=== PATIENT | female | born 1995 | race Caucasian/White ===

== ENCOUNTER 2021-03-03 23:13 | Emergency (ER) | payer MEDICARE, SELFPAY ==
[2021-03-03 23:18] VITALS: BP 177/105; PULSE 100; RESP 20; TEMP 36.1; O2SAT 98
--- NOTE | 2021-03-03 23:35 | ED.GENADULT ---
HPI - General Adult General Chief complaint: Psychiatric Symptoms <Julius Vallejo MD - Last Filed: 03/04/21 01:42> Stated complaint: paranoia <Julius Vallejo MD - Last Filed: 03/04/21 01:42> Time Seen by Provider: 03/03/21 23:26 <Julius Vallejo MD - Last Filed: 03/04/21 01:42> History of Present Illness HPI narrative: Patient is a 25-year-old female presents the emergency department with chief complaint of think people are trying to poison me patient denies suicidal or homicidal ideation reports that she wants to be tested so that she can give the information to the feds. <Julius Vallejo MD - Last Filed: 03/04/21 01:42> Review of Systems Review of Systems: A 10 system review of systems was completed on the patient and is negative except for what is stated in the HPI. Nursing and ancillary documentation was reviewed. <Julius Vallejo MD - Last Filed: 03/04/21 01:42> PMFSH Social History Social History: Social History Substance use type: unknown <Julius Vallejo MD - Last Filed: 03/04/21 01:42> Exam Narrative: GENERAL: Well-appearing, well-nourished, and in no acute distress. HEAD: Normocephalic, atraumatic. EYES: PERRLA and EOMI. ENT: Nares clear, no rhinorrhea or epistaxis. Mucous membranes moist. NECK: Supple. CHEST: Clear to auscultation. No respiratory distress. HEART: Regular rate and rhythm. No murmur heard. Normal peripheral pulses. ABDOMEN: Soft, nontender, nondistended, normal active bowel sounds. EXTREMITIES: Normal range of motion. No edema. SKIN: Warm, dry, no rash. NEURO: No focal deficits. Alert and oriented x3. PSYCH: Abnormal affect, denies suicidal or homicidal ideation. <Julius Vallejo MD - Last Filed: 03/04/21 01:42> Course Course Emergency Course: Currently the patient is not suicidal or homicidal the patient is stating that she does not want a mental health evaluation and does not want to be hospitalized at this time. The patient became combative threatening staff and threatening to kill people the patient was given Haldol and Ativan and continued to be combative and threatening others the patient was placed in four-point restraints and has been given additional doses of Haldol and Ativan as well as Zyprexa IM <Julius Vallejo MD - Last Filed: 03/04/21 01:42> Reevaluation(s) Reevaluation #1: Patient is clinically sober. She is awake alert and oriented x3. She is quite unpleasant however she answers questions appropriately and is acting appropriately. She is nonviolent and is very directable. She is spoken with the crisis behavior clinician who has no reason to hospitalize the patient. Patient would just like to go back to home and [place] where she had left her stuff. Denies SI/HI/AH/VH. <Derek Pickard MD - Last Filed: 03/04/21 14:08> Date: 03/04/21 <Derek Pickard MD - Last Filed: 03/04/21 14:08> Time: 14:04 <Derek Pickard MD - Last Filed: 03/04/21 14:08> Vital Signs Vital signs: Vital Signs Temperature 97.0 F L 03/03/21 23:18 Pulse Rate 100 03/03/21 23:18 Respiratory Rate 20 03/03/21 23:18 Blood Pressure 177/105 H 03/03/21 23:18 Pulse Oximetry 98 03/03/21 23:18 Temperature 97.0 F L 03/03/21 23:18 Pulse Rate 100 03/03/21 23:18 Respiratory Rate 20 03/03/21 23:18 Blood Pressure 177/105 H 03/03/21 23:18 Pulse Oximetry 98 03/03/21 23:18 <Julius Vallejo MD - Last Filed: 03/04/21 01:42> Vital Signs Temperature 97.0 F L 03/03/21 23:18 Pulse Rate 100 03/03/21 23:18 Respiratory Rate 20 03/03/21 23:18 Blood Pressure 177/105 H 03/03/21 23:18 Pulse Oximetry 98 03/03/21 23:18 Temperature 97.0 F L 03/03/21 23:18 Pulse Rate 100 03/03/21 23:18 Respiratory Rate 20 03/03/21 23:18 Blood Pressure 177/105 H
--- NOTE | 2021-03-03 23:45 | PC.NURSE ---
Pt educated by ED MD and this RN that if she would like to have bloodwork done and urine testing, she would need to cooperate with staff and stop yelling/threatening to leave. pt then ran through nurses station in ED throwing objects, slamming Tracker board TV, threw box of gloves at this RN, and cursing loudly. Security present and Police department notified of pt destroying property and refusing to leave.
--- NOTE | 2021-03-03 23:48 | PC.NURSE ---
Pt running around the department throwing objects off the desk with security following her around. Per EDP pt is able to leave as she is not a risk to herself or others. Pt sitting in front of the ED doors screaming at staff and refusing to leave. PD contacted for assistance.
--- NOTE | 2021-03-04 | ECG_ITS ---
Measurements Intervals [place] Rate: 77 P: 2 AL: 145 QRS: 36 QRSD: 93 T: 0 QT: 403 QTc: 457 Interpretive Statements SINUS RHYTHM INCOMPLETE RIGHT BUNDLE BRANCH BLOCK NONSPECIFIC T-WAVE ABNORMALITY- DIFFUSE LEADS BORDERLINE ECG Electronically Signed On 03-04-2021 5:27:25 CDT by Asif Colon D.O.
--- NOTE | 2021-03-04 00:23 | PC.NURSE ---
Pt remains refusing to allow any treatment and continues to scream, cry, and yell at staff. PD present. Per ED MD, pt to be moved from ED 3 to ED 15 for safety. Per PD officers at bedside, pt to be made involuntary.
--- NOTE | 2021-03-04 00:27 | PC.NURSE ---
Pt to ED 15, security at bedside. handoff to JAZMINE Townsend.
[2021-03-04] MEDS: LORazepam INJ (*CRX) 2 MG/ML VIAL IM ×2 (00:37→00:55)
[2021-03-04] MEDS: HALOPERIDOL LACTATE 5 MG/ML VIAL IM ×2 (00:37→00:55)
[2021-03-04] MEDS: diphenhydrAMINE HCl INJ 50 MG/ML VIAL IV PUSH (00:37)
[2021-03-04] MEDS: OLANZapine 10 MG INJ VIAL 5 MG IM (01:05)
[2021-03-04] MEDS: WATER, STERILE FOR INJECTION 10 ML VIAL XX (01:05)
--- NOTE | 2021-03-04 01:31 | PC.NURSE ---
at 0045 pt was put in hard restraints due to pt running around the ED throwing and yelling loudly. PT was hitting her head against the door frame in room 15. at 0037 medication was given to help calm the pt down, pt allowed Flora RN to give the medication. immediately after the medication was given pt began screaming and punching the air at the staff. PT continues to scream consistently since 003. Pt continues to try punching, biting, kicking and threatening any staff in the area. PT was held down by several people and put in hard restraints. PT then medicated again due to pt kicking and screaming and moving the bed around trying to hurt herself. PT then was medicated again after pt was consistently screaming and thrashing about in her bed with the restraints on. at 0135 - pt has calmed minimally at times. Will cont to monitor.
[2021-03-04 03:00] LABS: Basophils Percent Auto 0.2 % (0.2-1.2); Eosinophils Absolute Auto 0.1 K/mm3 (0-0.3); Eosinophils Percent Auto 1.5 % (0-4.4); Hematocrit 38.9 % (37.0-47.0); Immature Granulocyte Absolute 0.03 K/mm3 (0.00-0.031); Immature Granulocyte Percent A 0.3 % (0-0.5); Lymphocytes Absolute Auto 2.46 K/mm3 (0.9-3.2); Lymphocytes Percent Auto 25.9 % (18.3-44.2); Mean Corpuscular HGB Conc 33.4 g/dl (32-36); Mean Corpuscular Hemoglobin 29.5 pg (26-34); Mean Corpuscular Volume 88.4 fl (80-100); Mean Platelet Volume 10.2 fl (7.4-10.4); Monocytes Absolute Auto 0.8 K/mm3 (0.1-0.6); Monocytes Percent Auto 8.9 % (2.6-8.5); Neutrophils Percent Auto 63.2 % (45.5-73.1); Platelet Count Result 347 k/mm3 (150-375); Red Cell Distribution Width 13.5 % (11.5-14.5); White Blood Count 9.5 K/mm3 (4.5-10.0)
[2021-03-04 03:09] LABS: Acetaminophen < 10 ug/mL (10-30); Ethanol < 10 mg/dL (<10); Salicylate < 1.0 mg/dL (2-20)
[2021-03-04 03:10] LABS: Alanine Aminotransferase 17 U/L (4-35); Albumin Level 4.2 g/dL (3.5-5.1); Alkaline Phosphatase 107 U/L (38-126); Anion Gap 11 mmol/L (8-16); Aspartate Amino Transferase 27 U/L (14-36); Bilirubin,Total 1.2 mg/dL (0.2-1.3); Blood Urea Nitrogen 8 mg/dL (7-17); Calcium 9.3 mg/dL (8.4-10.2); Carbon Dioxide 22 mmol/L (22-30); Chloride 109 mmol/L (98-107); Estimated CRCL calculation 144 ml/min; Estimated Glomerular Filt Rate > 60; Glucose 100 mg/dL (65-110); Sodium 142 mmol/L (137-145)
[2021-03-04 03:24] LABS: Add Urine Microscopic? YES; Appearance Urine Clear (Clear); Bacteria Urine Trace /hpf; Bilirubin Urine Negative (Negative); Blood Urine Negative (Negative); Color Urine Amber (Yellow); Glucose Urine UA Negative (Negative); Ketones Urine Trace mg/dL (Negative); Leukocyte Esterase Ur Negative LEU/UL (Negative); Mucus Urine Heavy /lpf; Nitrate Urine Negative (Negative); Protein Urine 2+ mg/dL (Negative); Squamous Epithelial Cell Urine Rare /hpf (Few); WBC Urine 0-3 /hpf
[2021-03-04 03:29] LABS: Barbiturate Screen Urine Negative (Negative); Benzodiazepines Screen Urine Negative (Negative)
[2021-03-04 03:34] LABS: Cannabinoid Screen Urine Positive (Negative); Cocaine Screen Urine Negative (Negative); Methadone Screen Urine Negative (Negative); Opiate Screen Urine Negative (Negative); Phencyclidine Screen Urine Negative (Negative)
[2021-03-04 03:55] LABS: Amphetamine Screen Urine Positive (Negative)
--- NOTE | 2021-03-04 07:15 | PC.NURSE ---
Pt is asleep. Room is safe and sitter is at door
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
[2021-03-04] MEDS: POTASSIUM CHLORIDE 20 MEQ TABLET 40 MEQ (12:58)
== END 2021-03-04 15:05 | disposition home or self-care (01) ==
PROVIDERS: Emergency Provider Emergency Medicine
DX: F22 Delusional disorders (principal); R45.1 Restlessness and agitation; F15.10 Other stimulant abuse, uncomplicated
CPT/HCPCS: 36415; 51701; 80053; 80307; 81001; 84443; 85025; 93005; 96372; 96374; 99284; A9270; J1200; J1630; J2060

== ENCOUNTER 2021-12-18 11:49 | Emergency (ER) | payer SELFPAY ==
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
--- NOTE | ~2021-12-18 | XR_ITS ---
EXAMINATION: XR chest 1V portable INDICATION: Shortness of breath TECHNIQUE: Portable AP chest at 1321 hours COMPARISON: None available FINDINGS: The lungs are free of acute opacities. No pleural effusion or pneumothorax. The cardiomedia stinal silhouette is normal. The visualized bones and soft tissues are unremarkable. IMPRESSION: 1. No acute cardiopulmonary abnormality. Reviewed, dictated and finalized at location A.
--- NOTE | 2021-12-18 12:07 | ED.PSYCH ---
HPI - Psych General Chief Complaint: Psychiatric Symptoms <Luis Alberto Deleon MD - Last Filed: 12/18/21 20:48> Stated Complaint: AMBULANCE <Luis Alberto Deleon MD - Last Filed: 12/18/21 20:48> Time Seen by Provider: 12/18/21 12:06 <Luis Alberto Deleon MD - Last Filed: 12/18/21 20:48> Source: EMS <Luis Alberto Deleon MD - Last Filed: 12/18/21 20:48> Mode of arrival: EMS <Luis Alberto Deleon MD - Last Filed: 12/18/21 20:48> Limitations: altered mental status and intoxication <Luis Alberto Deleon MD - Last Filed: 12/18/21 20:48> History of Present Illness HPI Narrative: she called EMS for help but will not tell us any information except her last night <Luis Alberto Deleon MD - Last Filed: 12/18/21 20:48> MD complaint: feels depressed and altered mental status <Luis Alberto Deleon MD - Last Filed: 12/18/21 20:48> Onset (ago): unknown <Luis Alberto Deleon MD - Last Filed: 12/18/21 20:48> Duration: getting worse <Luis Alberto Deleon MD - Last Filed: 12/18/21 20:48> Relieving factors: none <Luis Alberto Deleon MD - Last Filed: 12/18/21 20:48> Exacerbating factors: none <Luis Alberto Deleon MD - Last Filed: 12/18/21 20:48> Context: recent drug abuse and not taking psychiatric medications <Luis Alberto Deleon MD - Last Filed: 12/18/21 20:48> Associated psychiatric symptoms: other (we do not know she will not communicate with us) <Luis Alberto Deleon MD - Last Filed: 12/18/21 20:48> Treatments prior to arrival: none <Luis Alberto Deleon MD - Last Filed: 12/18/21 20:48> Details of plan: none <Luis Alberto Deleon MD - Last Filed: 12/18/21 20:48> Related Data Home Medications: Home Medications Medication Instructions Recorded Confirmed Unable to Obtain Home Medications 12/18/21 12/18/21 <Luis Alberto Deleon MD - Last Filed: 12/18/21 20:48> Allergies/Adverse Reactions: Allergies Allergy/AdvReac Type Severity Reaction Status Date / Time melatonin Allergy Unknown Verified 12/19/21 15:11 Sulfa (Sulfonamide Allergy Unknown Verified 12/18/21 22:27 Antibiotics) <Luis Alberto Deleon MD - Last Filed: 12/18/21 20:48> Review of Systems Review of Systems: All systems reviewed & are unremarkable except as noted in HPI and below <Luis Alberto Deleon MD - Last Filed: 12/18/21 20:48> [facility] Social History Social History: Social History Substance use type: marijuana and heroin <Luis Alberto Deleon MD - Last Filed: 12/18/21 20:48> Comments we attempted to call a friend but she states she has no family <Luis Alberto Deleon MD - Last Filed: 12/18/21 20:48> Exam Const: General: confusion and diaphoretic <Luis Alberto Deleon MD - Last Filed: 12/18/21 20:48> Nutritional Appearance: obese <Luis Alberto Deleon MD - Last Filed: 12/18/21 20:48> Limitations: altered mental status and behavioral limitations <Luis Alberto Deleon MD - Last Filed: 12/18/21 20:48> HENMT: Head: normal to inspection <Luis Alberto Deleon MD - Last Filed: 12/18/21 20:48> Eyes: Conjunctivae: conjunctivae normal <Luis Alberto Deleon MD - Last Filed: 12/18/21 20:48> Pupils: Equal, round and reactive pupils present <Luis Alberto Deleon MD - Last Filed: 12/18/21 20:48> EOM: EOMs intact bilaterally <Luis Alberto Deleon MD - Last Filed: 12/18/21 20:48> Neck: Neck: normal visual inspection <Luis Alberto Deleon MD - Last Filed: 12/18/21 20:48> Chest: Chest palpation & inspection: normal inspection of the chest <Luis Alberto Deleon MD - Last Filed: 12/18/21 20:48> Resp: Effort & Inspection: normal respiratory effort <Luis Alberto Deleon MD - Last Filed: 12/18/21 20:48> Neuro: General: CN's II-XI intact bilaterally <Luis Alberto Deleon MD - Last Filed: 12/18/21 20:48> Cranial nerves: Yes Nystagmus not present <Luis Alberto Deleon MD - Last Filed: 12/18/21 20:48> Gait exam (Neuro): Normal gait present <Luis Alberto Deleon MD - Last Filed: 12/18/21 20:48> Extrem: General: normal to inspection <Luis Alberto Deleon MD - Last Filed: 12/18/21 20:48> Psych: Other: sever
[2021-12-18 12:17] VITALS: BP 146/101; PULSE 130; RESP 20; TEMP 36.7; O2SAT 98
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
--- NOTE | 2021-12-18 12:25 | PC.NURSE ---
1228 SPOKE WITH BRYANT THE PTS FRIEND [phone] FRIEND STATED SHE HAS A PERSONALITY DISORDER AND SHE DOES DO DRUGS SHE DOES NOT KNOW OF ANY OTHER FAMILY
--- NOTE | 2021-12-18 12:47 | PC.NURSE ---
4411 PT MOVED TO ROOM 5 PT SCREAMING AND YELLING AT STAFF POLICE REMAIN ON SITE
--- NOTE | 2021-12-18 12:48 | PC.NURSE ---
3399 DOOR CLOSED BECAUSE SHE IS SCREAMING OUT INTO THE NICOLAS
[2021-12-18 13:09] LABS: Hematocrit 45.3 % (35.0-49.0); Hemoglobin 15.5 g/dL (12.0-15.0); Immature Platelet Fraction Pct 2.7 % (1.0-7.0); Mean Corpuscular HGB Conc 34.2 g/dL (32.0-36.0); Mean Corpuscular Hemoglobin 29.9 pg (27.0-31.0); Mean Corpuscular Volume 87.5 fL (78.0-102.0); Platelet Count Result 494 K/mm3 (150-420); Red Blood Count 5.18 M/mm3 (4.20-5.40); Red Cell Distribution Width 14.3 % (11.6-14.4)
[2021-12-18 13:11] LABS: White Blood Count 22.4 K/mm3 (4.8-10.8)
--- NOTE | 2021-12-18 13:11 | PC.NURSE ---
1412 STRETCHER REMOVED FROM ROOM PT WAS STANDING ON BED PUTTING HAND OVER CAMERA
[2021-12-18 13:14] LABS: SPREG INTERNAL CONTROL Positive; Serum Qual hCG Negative
[2021-12-18 13:20] LABS: Band Neutrophils Percent 1 % (0-6); Basophils Absolute Manual 0.44 K/mm3 (0-0.1); Basophils Percent Manual 2 % (0-1); Eosinophils Absolute Manual 0.22 K/mm3 (0.02-0.5); Eosinophils Percent Manual 1 % (1-6); Lymphocytes Absolute Manual 3.13 K/mm3 (1.1-4.5); Lymphocytes Percent Manual 14 % (18-44); Monocytes Absolute Manual 1.34 K/mm3 (0.1-0.90); Monocytes Percent Manual 6 % (3-9); Neutrophils Absolute Manual 17.24 K/mm3 (1.7-7.2); Neutrophils Percent Manual 76 % (46-73); Platelet Estimate Increased (Adequate); Total Cells Counted 100
--- NOTE | 2021-12-18 13:22 | PC.NURSE ---
1322 MATRESS GIVEN FOR HER TO LAY DOWN ON
[2021-12-18 13:24] LABS: Alanine Aminotransferase 27 U/L (14-59); Albumin Level 4.3 g/dL (3.4-5.0); Alkaline Phosphatase 103 U/L (46-116); Anion Gap 13 mmol/L (8-16); Aspartate Amino Transferase 45 U/L (15-37); Bilirubin,Total 3.3 mg/dL (0.00-1.00); Blood Urea Nitrogen 11 mg/dL (7-18); Calcium 9.5 mg/dL (8.5-10.1); Carbon Dioxide 24 mmol/L (21-32); Chloride 104 mmol/L (98-108); Estimated Glomerular Filt Rate > 60; Glucose 106 mg/dL (70-99); Osmolality Calculated 291 mOsm/kg (285-295); Potassium 3.4 mmol/L (3.5-5.1); Sodium 141 mmol/L (136-145); Total Protein 8.6 g/dL (6.4-8.2)
[2021-12-18 13:31] LABS: Amphetamine Screen Urine Positive (Negative); Barbiturate Screen Urine Negative (Negative); Benzodiazepines Screen Urine Negative (Negative); Cannabinoid Screen Urine Positive (Negative); Cocaine Screen Urine Negative (Negative); Methadone Screen Urine Negative (Negative); Opiate Screen Urine Negative (Negative); Phencyclidine Screen Urine Negative (Negative)
[2021-12-18] MEDS: WATER, STERILE FOR INJECTION 10 ML VIAL XX (13:33)
[2021-12-18] MEDS: OLANZapine 10 MG INJ VIAL IM (13:33)
--- NOTE | 2021-12-18 13:44 | PC.NURSE ---
1340 urine collected again and taken to lab pt refusing to go back to room pt escorted back to room by senior branch manager [id number] pt putting pillow over camera pts arm got tired quickly
[2021-12-18 13:51] LABS: Acetaminophen < 2 ug/mL (10-30); Ethanol < 3 mg/dL (0-6); Phenytoin Dilantin < 1 ug/mL (10-20); Salicylate 1.7 mg/dL (2.8-20.0); Thyroid Stimulating Hormone 0.47 uIU/mL (0.36-3.74)
[2021-12-18 14:05] LABS: Appearance Urine Clear (Clear); Bilirubin Urine 2+ (Negative); Blood Urine 3+ (Negative); Glucose Urine UA Negative (Negative); Ketones Urine Trace (Negative); Leukocyte Esterase Ur Negative LEU/UL (Negative); Nitrate Urine Positive (Negative); Protein Urine 2+ (Negative); Specific Grav Ur >= 1.030 (1.010-1.020); pH Urine 5.5 (5.0-8.0)
[2021-12-18 14:10] LABS: Add Urine Microscopic? YES; Color Urine Dark Orange (Yellow); WBC Urine 0-3 /hpf (0-3)
[2021-12-18 14:11] LABS: Bacteria Urine 1+ /hpf; Mucus Urine Heavy /lpf; Squamous Epithelial Cell Urine Few /hpf (Few)
[2021-12-18 14:27] LABS: Troponin I 19.2 ng/L (0.00-60.4)
--- NOTE | 2021-12-18 17:00 | PC.NURSE ---
1530 PT IS NOW RESTING QUIETLY AWAITING [address]
--- NOTE | 2021-12-18 17:00 | PC.NURSE ---
[address] [facility] HAS ARRIVED
--- NOTE | 2021-12-18 17:01 | PC.NURSE ---
1649 HUYEN FROM [facility] STATED PT IS TO DROWSY TO ASSESS SHE CAN NOT STAY AWAKE TO ANSWER QUESTIONS
--- NOTE | 2021-12-18 19:14 | PC.NURSE ---
[address] [facility] SAID SHE WOULD CHECK BACK IN A FEW HOURS AND SEE IF PT IS AWAKE 1814 PT IS STILL RESTING QUIETLY WITH EYES CLOSED 1914 PT CONTINUES TO REST QUIETLY WITH EYES CLOSED
--- NOTE | 2021-12-18 20:25 | PC.NURSE ---
pt resting at this time. per Md Deleon, hold IV insertion until [place] vivian completes evaluation.
--- NOTE | 2021-12-18 21:27 | PC.NURSE ---
this staff member spoke with patient. pt asked, do you want to harm yourself or commit suicide? pt stated, I am thinking about it. you just woke me up. I don't know. pt would not provide this staff member a direct answer when asked if she is suicidal. pt became angry and turned away from this staff member. pt stated, I feel odd. i am tired, i feel woozy, I just woke up. pt agreed to have her blood drawn.
--- NOTE | 2021-12-18 21:30 | PC.NURSE ---
Elliott from [facility] called to find out if the patient was able to be assessed at this time. this staff member informed Elliott that the patient was awake. He informed this staff member that he will call back once knows when he will come and talk to the patient. Elliott stated, i have to finish with my current patient.
--- NOTE | 2021-12-18 21:33 | PC.NURSE ---
pt refused to have her blood drawn until she gets her bed back. bed was removed due to pt was standing on the bed. see previous nursing note. pt currently on a mattress on the floor. pt's bed returned.
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
--- NOTE | 2021-12-18 22:09 | PC.NURSE ---
Addendum entered by Dmitry العراقي RN 12/19/21 06:27: Correction - that said i am not sure should read then said i am not sure . Original Note: pt unable to provide information concerning what medication she is currently taking. pt unable to state her allergies. pt states she is allergic to melatonin, sulfa drugs, penicillin, and codeine and that said i am not sure.
--- NOTE | 2021-12-18 22:14 | PC.NURSE ---
Addendum entered by Dmitry العراقي RN 12/19/21 06:29: correction, brianna perkins should read her sister brianna perkins Original Note: attempted to contact brianna perkins at [phone] - no answer and left message. pt walked out of room five. this staff member informed the pt that there was no answer at the phone number that she provided for her sister. pt provided a new number [phone].
--- NOTE | 2021-12-18 22:17 | PC.NURSE ---
pt asking for socks. pt became agitated and stated, Can i get proper care. if i get athletes foot, can i patel the hospital?
--- NOTE | 2021-12-18 22:19 | PC.NURSE ---
this staff member provided socks to the pt.
--- NOTE | 2021-12-18 22:20 | PC.NURSE ---
pt came out of room five. pt stated. i keep having seizures. i need help. am i talking to myself? this staff member informed the pt that the ER doctor will be updated.
--- NOTE | 2021-12-18 22:35 | PC.NURSE ---
covid nasal swab sent to lab
--- NOTE | 2021-12-18 22:42 | PC.NURSE ---
attempted to contact pt's sister laine perkins at [phone], call went straight to voice mail, left message.
--- NOTE | 2021-12-18 23:24 | PC.NURSE ---
Addendum entered by Dmitry العراقي RN 12/19/21 06:32: correction pt standing at door with this staff should read pt standing at door when this staff Original Note: pt being agressive in room. pt yelled out for staff. pt standing at door with this staff member approached the door. pt stated in a raised voice, i need to go to the bathroom. why do i have to yell and act up in order to get help. i need to go to the bathroom. i need a wheel chair. this staff member informed the pt that she is walking and can walk to the bathroom. pt threw herself on the floor and would not move. this staff member obtained a wheelchair and pt stood up and got in the wheelchair. pt taken to bathroom. pt returned to room five using a wheelchair. pt self transferred from wheelchair to bed.
[2021-12-18 23:29] LABS: SARS-CoV-2 RNA PCR Negative (Negative)
--- NOTE | 2021-12-18 23:32 | PC.NURSE ---
pt becomes agitated when this staff member attempts to put bed rails down. pt states, i have to have them up or i will fall out of the bed.
--- NOTE | 2021-12-19 00:50 | PC.NURSE ---
Elliott from [facility] called to inform us that he is on his way.
--- NOTE | 2021-12-19 02:22 | PC.NURSE ---
Elliott from [facility] in the ER for patient evaluation.
--- NOTE | 2021-12-19 03:49 | PC.NURSE ---
Elliott from [facility] informed this staff member that he is reporting that the patient will need to be reevaluated after 9AM because she is disoriented and not making sense.
--- NOTE | 2021-12-19 06:46 | PC.NURSE ---
Davida mcnulty returned call that this staff member placed. Davida Mcnulty stated that she is not the pt's sister and that there is no Betty Mcnulty but there is a betty murdock. this staff member informed Mariel Mcnulty that the patient wanted her to know that she was in the hospital.
--- NOTE | 2021-12-19 09:09 | PC.NURSE ---
[facility] contacted. He will review this case and arrive to this hospital in 45 min.
--- NOTE | 2021-12-19 09:22 | PC.NURSE ---
pt continues to sleep. breakfast tray ordered for pt.
[2021-12-19 09:30] VITALS: BP 138/80; PULSE 61; RESP 16; TEMP 36.4; O2SAT 98
--- NOTE | 2021-12-19 10:01 | PC.NURSE ---
breakfast tray offered to pt. pt refuses at this time.
--- NOTE | 2021-12-19 10:11 | PC.NURSE ---
[facility] staff arrived, reviewing case.
[2021-12-19 10:43] LABS: Basophils Absolute Auto 0.04 K/mm3 (0.00-0.10); Basophils Percent Auto 0.4 % (0.0-1.0); Eosinophils Absolute Auto 0.23 K/mm3 (0.02-0.50); Eosinophils Percent Auto 2.3 % (1.0-6.0); Hematocrit 43.5 % (35.0-49.0); Hemoglobin 14.6 g/dL (12.0-15.0); Immature Granulocyte Absolute 0.05 K/mm3 (0.00-0.00); Immature Granulocyte Percent A 0.5 % (0.0-0.0); Lymphocytes Absolute Auto 1.94 K/mm3 (1.10-4.50); Lymphocytes Percent Auto 19.2 % (18.0-42.0); Mean Corpuscular HGB Conc 33.6 g/dL (32.0-36.0); Mean Corpuscular Hemoglobin 29.9 pg (27.0-31.0); Mean Corpuscular Volume 89.1 fL (78.0-102.0); Mean Platelet Volume 10.1 fl (9.2-11.8); Monocytes Absolute Auto 0.72 K/mm3 (0.10-0.90); Monocytes Percent Auto 7.1 % (2.0-11.0); Neutrophils Absolute Auto 7.1 K/mm3 (1.7-7.2); Neutrophils Percent Auto 70.5 % (50.0-70.0); Platelet Count Result 403 K/mm3 (150-420); Red Blood Count 4.88 M/mm3 (4.20-5.40); Red Cell Distribution Width 14.6 % (11.6-14.4); White Blood Count 10.1 K/mm3 (4.8-10.8)
--- NOTE | 2021-12-19 11:08 | PC.NURSE ---
elena mahmood counselor Parker at bedside conversing with the pt, pt calm and cooperative at this time
--- NOTE | 2021-12-19 12:56 | PC.NURSE ---
pt chart and voluntary paperwork from counselor faxed to emmanuelle in [facility]
[2021-12-19 14:00] VITALS: BP 132/67; PULSE 69; RESP 16; TEMP 36.4; O2SAT 98
[2021-12-19] MEDS: NITROFURANTOIN MONOHYD MACROCR 100 MG CAP PO (14:38)
--- NOTE | 2021-12-19 15:17 | PC.NURSE ---
pt chart faxed to [facility] for consideration of transfer. pt sleeping soundly
[2021-12-19 16:00] VITALS: BP 129/67; PULSE 60; RESP 14; TEMP 36.7; O2SAT 97
--- NOTE | 2021-12-19 17:00 | PC.NURSE ---
pt chart refaxed to [facility]. [facility] staff called to confirm their receipt.
--- NOTE | 2021-12-19 19:24 | PC.NURSE ---
[facility] called back and declined transfer. states pt is not suicidal per her phone interview with them.
--- NOTE | 2021-12-19 19:25 | PC.NURSE ---
Report received, pt in room, pacing at times and then back to bed. Pt on close observation c monitor and camera on per protocol
[2021-12-19 19:26] VITALS: BP 132/71; PULSE 78; RESP 20; O2SAT 98
--- NOTE | 2021-12-19 19:27 | PC.NURSE ---
marky called for more information to consider transfer admission.
--- NOTE | 2021-12-19 20:30 | PC.NURSE ---
Pt sleeping, on monitor under observation.
--- NOTE | 2021-12-19 22:00 | PC.NURSE ---
Call back from both [facility] and [facility]. Denied transfer to both facilities. Pt currently sleeping, no changes, Rr even and nonlabored.
--- NOTE | 2021-12-19 22:19 | PC.NURSE ---
Call placed to [facility] counselorRyan updated info. Pt will remain [facility] Hold[facility] until they can work on finding placement for pt in AM.
--- NOTE | 2021-12-20 | PC.NURSE ---
Pt sleeping, continues c observation per protocol and camera on. RR even and nonlabored, see flowsheet.
[2021-12-20 01:00] VITALS: BP 126/73; PULSE 74; RESP 20; TEMP 36.1; O2SAT 97
--- NOTE | 2021-12-20 01:00 | PC.NURSE ---
Pt awake and up ambulatory to BR, then back to bed, pt given 2 glasses of ice water per request. No c/o, pt cooperative c care at this time.
--- NOTE | 2021-12-20 02:05 | PC.NURSE ---
Pt sleeping, no changes, see flowsheet.
--- NOTE | 2021-12-20 04:00 | PC.NURSE ---
Pt sleeping, RR even and nonlabored, remains on camera sitter monitor per protocol.
--- NOTE | 2021-12-20 06:00 | PC.NURSE ---
Pt remains asleep, no changes.
--- NOTE | 2021-12-20 07:07 | PC.NURSE ---
Pt continues to sleep, report to Sweta Pradhan
--- NOTE | 2021-12-20 08:34 | PC.NURSE ---
rn spoke with angela from [facility], he attempted 7 hospitals yesterday and everyone declined patient. he has a few more this morning he is going to attempt for placement. will keep in touch for updates.
--- NOTE | 2021-12-20 09:57 | PC.NURSE ---
Chart faxed to mimi. Fernando states if they deflect he will be in to reassess patient.
--- NOTE | 2021-12-20 10:46 | PC.NURSE ---
patient ambulatory to bathroom. provided clean scrubs and depends. patient provided toothbrush and wash cloth to wash off face. patient called sister neptali and is now back in her room. cafeteria called for breakfast or lunch tray whatever they have avalible.
--- NOTE | 2021-12-20 10:51 | PC.NURSE ---
patient provided breakfast tray.
--- NOTE | 2021-12-20 11:24 | PC.NURSE ---
elena park at bedside speaking with patient at this time.
--- NOTE | 2021-12-20 11:52 | PC.NURSE ---
Fernando from [facility] has spoke with patient and ERP. patient is to be deflected home with safety plan. patient has spoke with sister Gracia who will let her come stay with her. patient is calling family for ride at this time.
--- NOTE | 2021-12-20 12:04 | PC.NURSE ---
all of patients personal belongings returned to patient. she is up for discharge and has called for ride. patient taken out to waiting room until her sister can come and get her.
[2021-12-20 12:17] VITALS: BP 128/84; PULSE 82; RESP 17; TEMP 36.8; O2SAT 97
[2021-12-20 14:31] LABS: Lithium <0.15 mmol/L (0.60-1.20)
[2021-12-22 14:16] LABS: Carbamazepine Tegretol <0.2 mcg/mL (4.0-12.0); Valproic Acid <4.0 mg/L (50.0-100.0)
--- NOTE | 2021-12-25 12:35 | PC.NURSE ---
BLOOD CULTURES X2 FINAL REPORT : NO GROWTH AFTER 5 DAYS
== END 2021-12-20 12:17 | disposition home or self-care (01) ==
PROVIDERS: Emergency Medicine; Emergency Provider Emergency Medicine
DX: F32.A Depression, unspecified (principal); Z20.822 Contact with and (suspected) exposure to COVID-19
CPT/HCPCS: 36415; 71045; 73590; 80053; 80156; 80164; 80178; 80185; 80307; 81001; 84443; 84484; 84703; 85025; 85055; 87040; 87086; 87088; 96372; 99284; A9270; C9803; U0003; U0005